=== PATIENT | male | born 1965 | race African-American/Black ===

== ENCOUNTER 2018-03-24 13:55 | Emergency (ER) | payer SELFPAY ==
[~2018-03-24 13:55] MED LIST: AMLO10 PO; CLIN150 PO; IBUP800T23 PO; RANI300T PO; ULTR50TA PO
== END 2018-03-24 14:05 | disposition left against medical advice (07) ==
LOC: NED 13:55
DX: Z03.89 Encounter for observation for other suspected diseases and conditions ruled out (principal)
CPT/HCPCS: 99281